=== PATIENT | female | born 1945 | race Two or more races ===

== ENCOUNTER 2021-12-28 20:54 | Emergency (ER) | payer OTHER ==
[2021-12-28 21:00] VITALS: BP 138/84; PULSE 88; RESP 18; TEMP 97.8; BMI 24.9
== END 2021-12-28 23:48 | disposition home or self-care (01) ==
LOC: JER 20:54
DX: S09.90XA Unspecified injury of head, initial encounter (principal); W06.XXXA Fall from bed, initial encounter
CPT/HCPCS: 70450-TC; 72125-TC; 99284-25